=== PATIENT | male | born 1995 | race African-American/Black ===

== ENCOUNTER 2022-02-07 22:24 | Emergency (ER) | payer OTHER ==
[~2022-02-07] VITALS: Ht 175.3 cm; Wt 63.6 kg
[2022-02-08 00:43] VITALS: BP 126/75
== END 2022-02-08 03:06 | disposition home or self-care (01) ==
LOC: EMS 22:31
DX: F10.929 Alcohol use, unspecified with intoxication, unspecified (principal)
CPT/HCPCS: 99281; 99283